=== PATIENT | male | born 2000 | race Caucasian/White ===

== ENCOUNTER 2023-07-12 13:02 | Emergency (ER) | payer BC, SELFPAY ==
[2023-07-12] VITALS (20 sets, daily range): BP systolic 153–178; BP diastolic 77–106; PULSE 90–124; RESP 12–29; TEMP 37.3; O2SAT 95–99
--- NOTE | 2023-07-12 13:15 | DI.RAD_ITS ---
Exam(s) XR SHOULDER LT COMPLETE 2+V EXAM: XR SHOULDER LT COMPLETE 2+V CLINICAL HISTORY: pain ?dislocation. TECHNIQUE: 2D digital imaging was performed. Three views. COMPARISON: No exams were available for comparison FINDINGS: BONES: No acute fracture is present. No bony destructive lesion is seen. JOINTS: Anterior dislocation of the humeral head with respect to the glenoid. AC joint is not widene d. SOFT TISSUE: Normal. Left lung clear. No visible pneumothorax. IMPRESSION: Anterior shoulder dislocation. DATA REPOSITORY: RADIATION DOSE DELIVERED:
--- NOTE | 2023-07-12 13:18 | W.ED.GENAD ---
Discharge Plan Disposition Patient Disposition: Home Condition: Stable Discharge Details Clinical Impression: Anterior dislocation of left shoulder Primary Care Provider: Tracy,Local ED Provider: Freddy Cosme Home Meds and New Rx's Prescriptions: Continued Emergen-C 1,000 mg powder effervescent in packet PO DAILY ascorbic acid-elderberry fruit [Airborne (elderberry)] 100-50 mg tablet,chewable PO DAILY albuterol sulfate [Ventolin HFA] 90 mcg/actuation HFA aerosol inhaler 1 - 2 inh inhalation Q4H PRN (Reason: cough, SOB, wheeze) Qty: 8.5 2RF Rx Instructions: Use with spacer Discharge Instructions Instructions: Shoulder Dislocation (ED) Additional Instructions: call orthopedics Thursday for a follow up appointment IF you feel more ill or have severe worsening pain return to the emergency department Referrals: Eduardo Osorio MD [ [facility] STAFF PHYSICIAN] - Medical Decision Making 22 yo male who states he's had a left and right shoulder dislocation in the past comes in stating his left shoulder is dislocated. HE was playing baseball and dove into a base with his left arm outstretched and felt his shoulder dislocated. Did not his head, no loc. HE is unable to move his left shoulder due to pain. He has no head pain, neck pain, back pain, chest or abdomen pain. No tenderness anywhere in the left arm other then the shoulder area and does look asymmetric compared to the right shoulder, intact pulses and sensation. Will obtain xrays, I did inject 15cc of 1% lidocaine prior to xrays to see if it would help with his pain and possibly allow reduction without sedation. This was done after cleaning the skin with chloroprep. xray on my read shows shoulder dislocation, still not able to manipulate the shoulder enough due to pain to reduce, patient gives consent to procedural sedation after discussing risks/benefits. xray reduced with 90mg propofol and no complications, he is awake, neurovascularly intact, follow up xray shows possible avulsion fracture anterior glenoid fossa. HE is stable for d/c, will refer to ortho, return precautions given Differential Diagnosis Differential Diagnosis: dislocatoin, fracture Imaging Data Radiologic Study #2: Attestation: I personally reviewed and interpreted this imaging study as follows: Imaging: X-Ray Radiologist's impression: This interpretation is based upon the receipt of 1 images. JOY OPERATOR HELPER (QA) DISCREPANCY? If there is a discrepancy between the preliminary and final interpretation, please notify [facility] via [email or web address]. If you do not have access to our QA portal, call our QA team at [phone] CONFIDENTIALITY STATEMENT This report is intended only for the use of the referring physician, and only in accordance with law, If you received this in error, call [phone] Page 1 of 1 PROCEDURE INFORMATION: Exam: XR Left Shoulder Exam date and time: 07/12/2023 2:44 PM Age: 22 years old Clinical indication: Other: Post reduction; Additional info: Pain ? dislocation TECHNIQUE: Imaging protocol: Radiologic exam of the left shoulder. Views: 1 view. COMPARISON: CR XR SHOULDER LT COMPLETE 2+V 12/07/2023 13:44 FINDINGS: Limitations: Single AP view. Bones/joints: Single post reduction film of the left shoulder demonstrates mild irregularity of the anterior inferior glenoid which may represent a small avulsion fracture. The humerus is intact. Soft tissues: Unremarkable. IMPRESSION: 1. Post reduction of left shoulder dislocation. 2. Possible defect or small avulsion fracture inferior anterior glenoid fossa. Radiologic Study: Attestation: I personally reviewed and interpreted this imaging study as follows: Imaging: X-Ray My impression: 1st xray shows anterior shoulder dislocation HPI General Mode of arrival: ambulatory. Date/Time Provider Initiated Documentation: 07/12/23 13:09. Limitations to Documentation: no limitations. Information obtained by: patient. History of Present Illness 22 year old M presents to the emergency department with the chief complaint of left shoulder pain, described as moderate, Quality is described as aching, Patient started experiencing this hour(s) (1) and it has been constant. Rest improves symptom(s), Movement worsens symptoms . Patient notes no other symptoms.. Related Data Home Medications Medication Instructions Recorded Confirmed albuterol sulfate 90 mcg/actuation 1 - 2 inh inhalation Q4H PRN 12/14/20 12/14/20 aerosol inhaler (Ventolin HFA) cough, SOB, wheeze #8.5 grams ascorbic acid 1,000 packet PO DAILY 12/14/20 [id number] powder effervescent pack (Emergen-C) ascorbic acid 100 mg-elderberry tab PO DAILY 02/19/21 fruit 50 mg chewable tablet (Airborne (elderberry)) Previous Rx's Medication Instructions Recorded albuterol sulfate 90 mcg/actuation 1 - 2 inh inhalation Q4H PRN 12/14/20 aerosol inhaler (Ventolin HFA) cough, SOB, wheeze #8.5 grams Allergies Allergy/AdvReac Type Severity Reaction Status Date / Time ibuprofen AdvReac Verified 12/14/20 11:37 General Stated Complaint: Orthopedic KANWAL: 3 Review of Systems All systems reviewed & are unremarkable except as noted in HPI and below Constitutional Constitutional: Denies chills, Denies fever(s) and Denies weakness Cardiovascular Cardiovascular: Denies chest pain and Denies dyspnea Respiratory Respiratory: Denies cough and Denies dyspnea Gastrointestinal Gastrointestinal: Denies abdominal pain, Denies nausea and Denies vomiting Musculoskeletal Musculoskeletal: Denies joint swelling Neurologic Neurologic: Denies weakness PFSH All Active Problems (Updated 07/12/23 @ 15:26 by Freddy Cosme MD) Anterior dislocation of left shoulder (Acute) Medical History (Updated 07/12/23 @ 15:26 by Freddy Cosme MD) Heart murmur pediatric per pt, 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, pt states he was advised to not take medications that prolong QT Social History (Updated 12/14/20 @ 12:04 by Chris England RN) Smoking/Tobacco Use Status: Never Smoking risk assessment performed?: Yes Exam Const General: no acute distress Orientation: alert HENWV Head: normal to inspection Ears: external ears normal General nose exam: external nose normal Mouth: moist mucous membranes Eyes General: appearance normal, both eyes and all related structures Neck Neck: normal visual inspection Resp Effort & Inspection: normal respiratory effort and able to speak in complete sentences Cardio Rate: regular rate Skin General skin exam: no rashes or lesions noted Neuro General: patient alert and patient oriented x3 Extrem General: capillary refill normal Psych Mental Status: mental status grossly normal Course Vital Signs Vital signs: Vital Signs Temperature 37.3 C 07/12/23 13:05 Pulse 124 H 07/12/23 13:05 Respiratory Rate 14 07/12/23 13:05 Blood Pressure 176/101 H 07/12/23 13:05 Pulse Oximetry 99 07/12/23 13:05 Temperature 37.3 C 07/12/23 13:05 Temperature Source Oral 07/12/23 13:05 Pulse 124 H 07/12/23 13:05 Respiratory Rate 14 07/12/23 13:05 Respiratory Effort Normal 07/12/23 13:10 Blood Pressure 176/101 H 07/12/23 13:05 Blood Pressure Position Sitting 07/12/23 13:05 Pulse Oximetry 99 07/12/23 13:05 Oxygen Delivery Method Room Air 07/12/23 13:05 Oxygen Flow Rate 0 07/12/23 13:05 Pain Level 8 07/12/23 13:10 Comment 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 07/12/23 13:05 Procedures Procedural Sedation Indication: fracture/dislocation reduction ASA Class: I Preparation: groundwater monitoring technician applied, pulse oximeter, capnometry used, supplemental O2 applied, suction/airway equipment at bedside and IV secured IV Propofol dose (mg): 90 Patient Tolerated Procedure: well Complications: none PAWSS Have you Been Recently Intoxicated or Drunk Within the Last 30 days?: No Have you Ever Experienced Previous Episodes of Alcohol Withdrawal?: No Have you ever Experienced Withdrawal Seizures?: No Have you ever Experienced Delirium Tremens(DT)s?: No Have you ever undergone Alcohol Rehabilitation Treatment (i.e, inpt ot outpatient treatment programs)?: No Have you ever Experienced Blackouts?: No Have you ever Combined Alcohol with other Downers within the last 90 days?: No Have you ever Combined Alcohol with any other Substance of Abuse during the last 90 days?: No Positive Blood Alcohol level on Presentation? [PCS.BAL]: No Evidence of Increased Autonomic Activity (i.e. HR>120, tremor, sweating, agitation, nausea)?: No Result: 0
[2023-07-12] MEDS: HYDROmorphone 2 MG/ML SYR 1 MG IVP (14:22)
[2023-07-12] MEDS: Ondansetron 4 MG/2 ML VIAL IVP (14:23)
--- NOTE | 2023-07-12 14:23 | DI.VRAD_ITS ---
PROCEDURE INFORMATION: Exam: XR Left Shoulder Exam date and time: 07/12/2023 1:44 PM Age: 22 years old Clinical indication: Other: Pain ? dislocation TECHNIQUE: Imaging protocol: Radiologic exam of the left shoulder. Views: 2 or more views. COMPARISON: No relevant prior studies available. FINDINGS: Bones/joints: Anterior dislocation of the left shoulder. No evidence for fracture. Soft tissues: Unremarkable. IMPRESSION: Anterior shoulder dislocation. Dictated and Authenticated by: Aliya Pena MD. Ordering:CLARISA Hayes MD
[2023-07-12] MEDS: Normal Saline 1,000 ML 1000 ML IV (14:24)
--- NOTE | 2023-07-12 14:30 | DI.RAD_ITS ---
Exam(s) XR SHOULDER LT 1V EXAM: XR SHOULDER LT 1V CLINICAL HISTORY: post reduction. TECHNIQUE: 2D digital imaging was performed. Three views. COMPARISON: CR,XR XR SHOULDER LT COMPLETE 2+V from 07/12/2023 FINDINGS: BONES: A small bony density seen at the anterior inferior glenoid suspicious for Bankart lesion. A c urvilinear lucency seen at the region of the posterior humeral head suspicious for Hill-Sachs lesion. JOINTS: Previously noted anterior dislocation has been reduced. SOFT TISSUE: Normal. IMPRESSION: Bankart and Hill-Sachs lesions status post reduction of glenohumeral joint dislocation. DATA REPOSITORY: RADIATION DOSE DELIVERED:
[2023-07-12] MEDS: Propofol 200 MG/20 ML VIAL IVP (14:44)
--- NOTE | 2023-07-12 14:48 | RESPIRATORY ---
RT present for conscious sedation in ED. Nasal cannula with EtCO2 monitoring placed on patient with ambu bag and nasal airway at bedside. SpO2 98% on RA, EtCO2 33 and RR 15-20 during procedure.
--- NOTE | 2023-07-12 14:58 | DI.VRAD_ITS ---
PROCEDURE INFORMATION: Exam: XR Left Shoulder Exam date and time: 07/12/2023 2:44 PM Age: 22 years old Clinical indication: Other: Post reduction; Additional info: Pain ? dislocation TECHNIQUE: Imaging protocol: Radiologic exam of the left shoulder. Views: 1 view. COMPARISON: CR XR SHOULDER LT COMPLETE 2+V 12/07/2023 13:44 FINDINGS: Limitations: Single AP view. Bones/joints: Single post reduction film of the left shoulder demonstrates mild irregularity of the anterior inferior glenoid which may represent a small avulsion fracture. The humerus is intact. Soft tissues: Unremarkable. IMPRESSION: 1. Post reduction of left shoulder dislocation. 2. Possible defect or small avulsion fracture inferior anterior glenoid fossa. Dictated and Authenticated by: Aliya Pena MD. Ordering:CLARISA Hayes MD
== END 2023-07-12 15:58 | disposition home or self-care (01) ==
PROVIDERS: Emergency Provider Emergency Medicine
DX: S43.102A Unspecified dislocation of left acromioclavicular joint, initial encounter (principal); X19.XXXA Contact with other heat and hot substances, initial encounter
CPT/HCPCS: 23545; 96361; 96374; 96375; 99284; 73020; 73030; J1170; J2405; J2704

== ENCOUNTER 2023-07-21 16:00 | Outpatient (CLI) | payer BC, SELFPAY ==
--- NOTE | 2023-07-21 15:00 | DI.RAD_ITS ---
Exam(s) XR SHOULDER LT COMPLETE 2+V EXAM: XR SHOULDER LT COMPLETE 2+V CLINICAL HISTORY: left shoulder f/u. TECHNIQUE: 2D digital imaging was performed of the left shoulder. Three images were obtained. Gras hey, Y-view and axillary views were obtained. COMPARISON: CR,XR XR SHOULDER LT 1V from 07/12/2023 CR,XR XR SHOULDER LT COMPLETE 2+V from 07/12/2023 FINDINGS: BONES: No acute fracture is present. No bony destructive lesion is seen. JOINTS: No dislocation present. SOFT TISSUE: Normal. IMPRESSION: Unremarkable radiographs of the left shoulder. DATA REPOSITORY: RADIATION DOSE DELIVERED:
== END 2023-07-21 16:01 | disposition home or self-care (01) ==
LOC: DIORS 16:00
PROVIDERS: Visit Provider Student in an Organized Health Care Education/Training Program
DX: S43.015D Anterior dislocation of left humerus, subsequent encounter (principal); X58.XXXD Exposure to other specified factors, subsequent encounter
CPT/HCPCS: 73030

== ENCOUNTER 2023-08-13 01:38 | Outpatient (CLI) | payer BC, SELFPAY ==
--- NOTE | 2023-08-13 06:30 | DI.MRI_ITS ---
Exam(s) MR UPPER JOINT LT WO EXAM: MR UPPER JOINT LT WO CLINICAL HISTORY: RECURRENT DISLOCATIONS WITH INSTABILITY,S43.015A. TECHNIQUE: Multiplanar multisequence MRI was performed. COMPARISON: CR,XR XR SHOULDER LT COMPLETE 2+V from 07/12/2023 CR XR SHOULDER LT COMPLETE 2+V from 07/21/2023 FINDINGS: BONES: There is a Hill-Sachs deformity of the humeral head with marrow edema in the posterolateral as pect of the humeral head. JOINTS: The acromioclavicular joint is normal. Please see below under glenoid labrum. TENDONS: Supraspinatus: Unremarkable. Infraspinatus: Unremarkable. Subscapularis: Unremarkable. [place]: Unremarkable. Biceps and [place]: Unremarkable. MUSCLES: Unremarkable. GLENOID LABRUM: There is an avulsion of the anterior inferior glenoid labrum consistent with a Bankar t lesion. There is disruption of the cortex of the glenoid at the anterior inferior aspect consisten t with an osseous Bankart lesion. SOFT TISSUES: Unremarkable. LIGAMENTS: Unremarkable. OTHER: Subacromial and subdeltoid bursae are unremarkable. IMPRESSION: 1. Findings consistent with a prior anterior shoulder dislocation with a Hill-Sachs deformity involvi ng the humeral head. 2. Avulsion of the anterior inferior glenoid labrum consistent with a Bankart lesion. 3. There also is disruption of the cortex of the anterior inferior glenoid consistent with an osseous Bankart. DATA REPOSITORY:
== END 2023-08-13 01:58 ==
PROVIDERS: Visit Provider Student in an Organized Health Care Education/Training Program
DX: S43.015A Anterior dislocation of left humerus, initial encounter (principal); X58.XXXA Exposure to other specified factors, initial encounter
CPT/HCPCS: 73221